=== PATIENT | female | born 2000 | race Hispanic/Latino ===

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

== ENCOUNTER 2025-03-13 18:45 | Emergency (ER) | payer MEDICAID, OTHER, SELFPAY ==
[~2025-03-13 18:45] MED LIST: Iopamidol-370 76% 500 ML MDV (1 ML CHARGE) ONE
[2025-03-13 19:08] LABS: #Basophils 0.04 10x3/uL (0.0-0.2); #Eosinophils 0.06 10x3/uL (0.0-0.7); #Monocytes 0.66 10x3/uL (0.11-0.59); #Neutrophils 4.91 10x3/uL (1.40-6.50); %Basophils 0.5 % (0.0-1.0); %Eosinophils 0.7 % (0.0-10.0); %Lymphocytes 27.8 % (21.0-51.0); %Monocytes 7.9 % (0.0-10.0); %Neutrophils 59.0 % (42.0-75.0); Hematocrit 38.0 % (36.0-47.0); Hemoglobin 12.0 g/dL (12.0-16.0); Mean Corpuscular Hemoglobin 27.3 pg (27.0-31.0); Mean Corpuscular Volume 86.4 fL (78.0-98.0); Platelet Count 202 10x3/uL (130-400); Red Blood Cell (RBC) Count 4.40 mill/uL (4.20-5.40); White Blood Cell (WBC) Count 8.32 10x3/uL (4.8-10.8)
[2025-03-13 19:18] LABS: BHCG - Serum Negative (NEGATIVE); Pregs Control Background? CLEAR/WHITE (CLR/WHITE); Pregs Control Bar Appear? YES (CONTROL BAR)
[2025-03-13 19:28] LABS: INR-International Normal Ratio 1.2; Prothrombin Time 15.2 sec (12.0-14.7)
[2025-03-13 19:29] LABS: PTT 33.6 sec (22.9-36.1)
[2025-03-13 19:35] LABS: ALT (SGPT) 39 U/L (Less than 34); AST (SGOT) 82 U/L (11-34); Albumin 3.8 g/dL (3.1-4.5); Alkaline Phosphatase 60 U/L (40-110); Anion Gap 11 mmol/L (10-20); BUN (Urea Nitrogen) 19 mg/dL (7.0-18.7); Bilirubin, Total 0.3 mg/dL (0.3-1.2); Calc. Creatinine Clearance 0 mL/min (70-130); Calcium 8.4 mg/dL (7.8-10.44); Carbon Dioxide 21 mmol/L (22-29); Chloride 110 mmol/L (98-107); Globulin 2.8 g/dL (2.4-3.5); Glucose 99 mg/dL (70-105); Lipase 58 U/L (8-78); Potassium 3.7 mmol/L (3.5-5.1); Sodium 138 mmol/L (136-145)
[2025-03-13] MEDS ORDERED: Ondansetron PF 4 MG/2 ML Vial ONE ×2 (19:46→21:07)
[2025-03-13] MEDS ORDERED: Famotidine/PF 20 mg/2ml Vial ONE (21:08)
[2025-03-13] MEDS ORDERED: Metoclopramide HCl 10 MG (2 mL) VIAL ONE (23:13)
== END 2025-03-14 02:19 | disposition home or self-care (01) ==
LOC: ERS 18:45
DX: S06.0XAA Concussion with loss of consciousness status unknown, initial encounter (principal); S32.049A Unspecified fracture of fourth lumbar vertebra, initial encounter for closed fracture; V89.2XXA Person injured in unspecified motor-vehicle accident, traffic, initial encounter
CPT/HCPCS: 36415; 70450; 71045; 71260; 72100; 72125; 72170; 74177; 80053; 80307; 83605; 83690; 84703; 85025; 85610; 85730; 86850; 86900; 86901; 93005; 94760; 96365; 96375; 96376; G0390; J1308; J2405; J2765; J3010; Q9967